=== PATIENT | male | born 1955 | race Caucasian/White ===

== ENCOUNTER 2018-10-25 17:00 | Outpatient (CLI) | payer BC | END 2018-10-25 17:01 | disposition home or self-care (01) | LOC: SLEEPLAB 17:00 | PROVIDERS: ATTEND Specialist | DX: G47.33 Obstructive sleep apnea (adult) (pediatric) (principal); R06.83 Snoring; G35 Multiple sclerosis | CPT/HCPCS: 95806 ==

== ENCOUNTER 2018-12-21 20:30 | Outpatient (CLI) | payer BC | END 2018-12-21 20:31 | disposition home or self-care (01) | LOC: SLEEPLAB 20:30 | PROVIDERS: ATTEND Specialist | DX: G47.33 Obstructive sleep apnea (adult) (pediatric) (principal); R53.83 Other fatigue; R06.83 Snoring | CPT/HCPCS: 95811 ==

== ENCOUNTER 2025-02-22 08:45 | Outpatient (CLI) | payer MEDICARE | END 2025-02-22 08:46 | disposition home or self-care (01) | LOC: MRI 08:45 | PROVIDERS: ATTEND Internal Medicine | DX: G35 Multiple sclerosis (principal); M51.34 Other intervertebral disc degeneration, thoracic region; M50.21 Other cervical disc displacement, high cervical region; M50.221 Other cervical disc displacement at C4-C5 level; M50.222 Other cervical disc displacement at C5-C6 level; M50.223 Other cervical disc displacement at C6-C7 level; M47.812 Spondylosis without myelopathy or radiculopathy, cervical region; M47.814 Spondylosis without myelopathy or radiculopathy, thoracic region; M48.02 Spinal stenosis, cervical region; M48.03 Spinal stenosis, cervicothoracic region; M48.04 Spinal stenosis, thoracic region; D18.09 Hemangioma of other sites; G95.9 Disease of spinal cord, unspecified | CPT/HCPCS: 72156; 72157 ==